=== PATIENT | female | born 1995 | race Caucasian/White ===

== ENCOUNTER 2020-03-28 12:56 | Emergency (ER) | payer MEDICAID ==
[~2020-03-28] VITALS: Ht 161.3 cm; Wt 92.1 kg
[2020-03-28 13:00] VITALS: BP 127/75
--- NOTE | 2020-03-28 13:31 | NUR ---
labs at bedside
--- NOTE | 2020-03-28 13:34 | NUR ---
emily goldberg at bedside doin ekg
--- NOTE | 2020-03-28 13:34 | NUR ---
Boyfriend states witnessed pt's "body stiffening & shaking, eyes darting around" x 20-30 sec with possible LOC. Also states previous episodes of "spacing out". No loss of bowel/bladder control. Was sitting at the time so fell back into cough. Pt aox4 , afibrile , ambulatory with steady gait, pink palpebral conjunctiva , anicteric sclera, sce , flat soft abdomen. Hx- bipolar, OCD, PTSD, PCOS, migraine NKA
[2020-03-28 13:37] LABS: BASOPHILS # (AUTO) 0.1 K/uL (0.00-0.22); BASOPHILS % (AUTO) 0.3 % (0.0-2.0); EOSINOPHILS # (AUTO) 0.1 K/uL (0-0.4); EOSINOPHILS % (AUTO) 0.4 % (0.0-4.0); HEMATOCRIT 41.1 % (36-48); HEMOGLOBIN 13.8 g/dL (12.0-16.0); LYMPHOCYTES % (AUTO) 13.4 % (20.5-51.1); MEAN CORPUSCULAR HEMOGLOBIN 28 pg (27-31); MEAN CORPUSCULAR HGB CONC 34 g/dL (33-37); MEAN CORPUSCULAR VOLUME 84.6 fL (80-94); MONOCYTES # (AUTO) 0.8 K/uL (0.8-1.0); MONOCYTES % (AUTO) 5.3 % (1.7-9.3); NEUTROPHILS # (AUTO) 12.3 K/uL (1.8-7.7); NEUTROPHILS % (AUTO) 80.6 % (42.2-75.2); PLATELET COUNT (AUTO) 257 K/uL (140-450); RED BLOOD CELL COUNT(AUTO) 4.86 MIL/uL (4.20-5.40); RED CELL DISTRIBUTION WIDTH 13.9 % (11.6-13.7); WHITE BLOOD COUNT (AUTO) 15.2 K/uL (4.8-10.8)
--- NOTE | 2020-03-28 13:37 | NUR ---
pt to ct scan via [facility].
--- NOTE | 2020-03-28 13:45 | NUR ---
pt back fro ct scan
[2020-03-28 13:55] LABS: ANION GAP 15.3 (8-16); CARBON DIOXIDE 22.7 mmol/L (21-32)
--- NOTE | 2020-03-28 13:56 | NUR ---
dr parekh at bedside evaluating pt.
[2020-03-28 14:28] VITALS: BP 101/66
--- NOTE | 2020-03-28 14:29 | NUR ---
Patient discharged with v/s stable. Written and verbal after care instructions given and explained. Patient verbalized understanding. Ambulatory with steady gait. All questions addressed prior to discharge. Advised to follow up with PMD.Excuse from work and copy of lab results provided.
== END 2020-03-28 14:29 | disposition home or self-care (01) ==
LOC: MED 12:56
DX: R56.9 Unspecified convulsions (principal); F42.9 Obsessive-compulsive disorder, unspecified
CPT/HCPCS: 36415; 70450; 71045; 80048; 81002; 81025; 83735; 84484; 85025; 93005; 99285; Q0092

== ENCOUNTER 2020-08-27 17:51 | Emergency (ER) | payer MEDICAID, OTHER ==
[~2020-08-27] VITALS: Ht 162.6 cm; Wt 104.3 kg
[2020-08-27 17:53] VITALS: BP 115/62
[2020-08-27] MEDS ORDERED: KETOROLAC 15 MG/ML VIAL IM ONE ×2 (19:55→20:10)
[2020-08-27] MEDS ORDERED: KETOROLAC 15 MG/ML VIAL ONE (19:57)
[2020-08-27 20:15] VITALS: BP 115/62
== END 2020-08-27 20:15 | disposition home or self-care (01) ==
LOC: MED 17:51
DX: R10.2 Pelvic and perineal pain (principal)
CPT/HCPCS: 76856; 81002; 81025; 93976; 96372; 99284; J1885

== ENCOUNTER 2022-11-11 10:49 | Emergency (ER) | payer OTHER ==
[~2022-11-11] VITALS: Ht 162.6 cm; Wt 114.8 kg
[2022-11-11 10:58] VITALS: BP 150/81
--- NOTE | 2022-11-11 11:20 | NUR ---
MD WOOD AT BEDSIDE FOR MSE.
[2022-11-11] MEDS ORDERED: HALOPERIDOL IM 5 MG/ML VIAL IVP ONE (11:25)
[2022-11-11] MEDS ORDERED: diphenhydrAMINE 50 MG/ML VIAL IVP ONE (11:25)
[2022-11-11] MEDS ORDERED: KETOROLAC 15 MG/ML VIAL IVP ONE (11:25)
[2022-11-11] MEDS ORDERED: NACL 0.9% 1,000 ML IV ONE (11:25)
[2022-11-11] MEDS ORDERED: HALOPERIDOL IM 5 MG/ML VIAL IM ONE (11:30)
[2022-11-11 12:25] LABS: BASOPHILS % (AUTO) 0.2 % (0.0-2.0); EOSINOPHILS # (AUTO) 0.1 K/uL (0-0.4); EOSINOPHILS % (AUTO) 0.3 % (0.0-4.0); HEMATOCRIT 40.5 % (36-48); HEMOGLOBIN 13.3 g/dL (12.0-16.0); LYMPHOCYTES # (AUTO) 2.9 K/uL (2.5-16.5); LYMPHOCYTES % (AUTO) 17.4 % (20.5-51.1); MEAN CORPUSCULAR HEMOGLOBIN 27 pg (27-31); MEAN CORPUSCULAR HGB CONC 33 g/dL (33-37); MEAN CORPUSCULAR VOLUME 83.1 fL (80-94); MONOCYTES # (AUTO) 0.7 K/uL (0.8-1.0); MONOCYTES % (AUTO) 4.2 % (1.7-9.3); NEUTROPHILS # (AUTO) 12.8 K/uL (1.8-7.7); NEUTROPHILS % (AUTO) 77.9 % (42.2-75.2); PLATELET COUNT (AUTO) 300 K/uL (140-450); RED BLOOD CELL COUNT(AUTO) 4.87 MIL/uL (4.20-5.40); RED CELL DISTRIBUTION WIDTH 15.5 % (11.6-13.7); WHITE BLOOD COUNT (AUTO) 16.5 K/uL (4.8-10.8)
[2022-11-11 12:39] LABS: ANION GAP 12.9 (8-16); CARBON DIOXIDE 29.7 mmol/L (21-32); CREATININE 0.8 mg/dL (0.6-1.3); POTASSIUM 4.6 mmol/L (3.5-5.1); TOTAL BILIRUBIN 0.2 mg/dL (0.0-1.0)
[2022-11-11] MEDS ORDERED: ACET-10509 PO (14:37)
[2022-11-11] MEDS ORDERED: FAMO-90 PO (14:37)
[2022-11-11] MEDS ORDERED: ONDA-188 PO (14:37)
[2022-11-11 15:11] LABS: APPEARANCE,URINE CLEAR (CLEAR); BILIRUBIN,URINE NEGATIVE (NEGATIVE); BLOOD, URINE 1+ (NEGATIVE); COLOR,URINE YELLOW (YELLOW); LEUKOCYTE ESTERASE ,URINE 1+ (NEGATIVE); NITRITE, URINE NEGATIVE (NEGATIVE); UGLUCOSE NEGATIVE (NEGATIVE)
[2022-11-11 15:21] LABS: RBC,URINE 11-20 (MOD) /HPF (0-5)
[2022-11-11 15:25] VITALS: BP 121/73
--- NOTE | 2022-11-11 15:25 | NUR ---
Patient discharged with v/s stable. Written and verbal after care instructions given and explained. Patient alert, oriented and verbalized understanding of instructions. Ambulatory with steady gait. All questions addressed prior to discharge. ID band removed. Patient advised to follow up with PMD. Rx of TYLENOL, ZOFRAN AND PEPCID given. Patient educated on indication of medication including possible reaction and side effects. Opportunity to ask questions provided and answered. IV D/C'D.
== END 2022-11-11 15:25 | disposition home or self-care (01) ==
LOC: MED 10:49
DX: R11.2 Nausea with vomiting, unspecified (principal); R10.13 Epigastric pain; D72.829 Elevated white blood cell count, unspecified; E28.2 Polycystic ovarian syndrome; F12.90 Cannabis use, unspecified, uncomplicated; Z79.899 Other long term (current) drug therapy
CPT/HCPCS: 36415; 80053; 81001; 81025; 83690; 85025; 87086; 96361; 96372; 96374; 96375; 99284; J1200; J1630; J1885; J7030